=== PATIENT | male | born 1985 | race Caucasian/White ===

== ENCOUNTER 2017-10-24 19:24 | Emergency (ER) | payer SELFPAY ==
[~2017-10-24] VITALS: Ht 157.5 cm; Wt 89.4 kg
[2017-10-24 19:27] VITALS: BP_SYST 117
--- NOTE | 2017-10-24 19:27 | NUR ---
Patient triaged and placed in waiting room. VSS and patient appears in no acute distress at this time. Awaiting available bed, and MD notified of need for MSE.
--- NOTE | 2017-10-24 22:30 | NUR ---
Patient called no answer. Patient not found in the ED at this time.
--- NOTE | 2017-10-24 22:45 | NUR ---
Patient called, no answer, unable to find patient in ED waiting room.
--- NOTE | 2017-10-24 23:00 | NUR ---
Patient not found in ED called three times for bed placement. Patient LWBS.
== END 2017-10-24 23:00 | disposition left against medical advice (07) ==
LOC: SED 19:24
DX: R11.2 Nausea with vomiting, unspecified (principal); Z53.21 Procedure and treatment not carried out due to patient leaving prior to being seen by health care provider